=== PATIENT | male | born 1945 | race Caucasian/White ===

== ENCOUNTER 2017-07-05 09:35 | Emergency (ER) | END 2017-07-05 12:12 | disposition home or self-care (01) ==

== ENCOUNTER 2018-03-02 10:52 | Emergency (ER) | payer MEDICARE, OTHER ==
[~2018-03-02] VITALS: Wt 66.9 kg
[~2018-03-02 10:52] MED LIST: FIORICET PO
[2018-03-02 10:56] VITALS: BP 123/78; PULSE 78; RESP 16
[2018-03-02] MEDS ORDERED: BENZ-6 PO (13:40)
[2018-03-02] MEDS ORDERED: AZIT250T PO (13:40)
--- NOTE | 2018-03-02 13:57 | ERD ---
ER Documentation Chief Complaint Chief Complaint COUGH WITH PHLEGM X6 MONTHS, NO SOB, NO CP HPI Patient is a 72-year-old male with past medical history of CVA who presents the ER for concerns of cough times 6 months. Patient is brought in by his granddaughter. Patient reports clear sputum production. Patient denies any hemoptysis. Patient denies any shortness of breath. Patient states he occasionally has chest pain when coughing only. Patient denies any chest pain rest. Patient denies any radiating pain. Patient denies any leg swelling, history of DVT/PE, recent surgeries. Patient denies any weight loss or night sweats. ROS All systems reviewed and are negative except as per history of present illness. Medications Home Meds Active Scripts Azithromycin* (Zithromax*) 250 Mg Tablet, 250 MG PO .ZPACK DIRECTED, #6 TAB TAKE 500 MG (2 TABS) THE FIRST DAY THEN 250 MG (1 TAB) DAYS 2-5 Prov:MIRTHA GONZALEZ PA-C 03/02/18 Benzonatate* (Tessalon Perle*) 100 Mg Capsule, 100 MG PO Q8H PRN for COUGH, #20 CAP Prov:MIRTHA GONZALEZ PA-C 03/02/18 Acetamin/Butalbital/Caffeine* (Fioricet*) [id number] Tab, 1 TAB PO Q6H PRN for PAIN, #30 TAB Prov:DWAIN SWARTZ PA-C 07/05/17 Allergies Allergies: Coded Allergies: No Known Allergy (Unverified , 07/05/17) PMhx/Soc Hx Neurological Disorder: Yes (CVA) Hx Alcohol Use: No Hx Substance Use: No Hx Tobacco Use: No FmHx Family History: No diabetes Physical Exam Vitals Vital Signs Date Temp Pulse Resp B/P (MAP) Pulse Ox O2 O2 Flow FiO2 Time Delivery Rate 03/02/18 97.8 78 16 123/78 96 10:56 (93) Physical Exam GENERAL: Well-developed, well-nourished male. Appears in no acute distress. HEAD: Normocephalic, atraumatic. EYES: Pupils are equally reactive bilaterally. EOMs grossly intact. No conjunctival erythema. ENT: Moist mucous membranes. No uvula deviation. No kissing tonsils. NECK: Supple. No meningismus. Normal range of motion of the neck. LUNG: Clear to auscultation bilaterally. No rhonchi, wheezing, rales or coarse breath sounds. HEART: Regular rate and rhythm. No murmurs, rubs or gallops. EXTREMITIES: Equal pulses bilaterally. No peripheral clubbing, cyanosis or edema. No unilateral leg swelling. NEUROLOGIC: Alert and oriented. Moving all four extremities without any difficulty. Normal speech. Steady gait. SKIN: Normal color. Warm and dry. No rashes or lesions. Result Diagram: 03/02/18 1224 03/02/18 1224 Results 24 hrs Laboratory Tests Test 03/02/18 12:24 White Blood Count 5.3 10^3/ul Red Blood Count 5.26 10^6/ul Hemoglobin 16.9 g/dl Hematocrit 47.7 % Mean Corpuscular Volume 90.7 fl Mean Corpuscular Hemoglobin 32.1 pg Mean Corpuscular Hemoglobin Concent 35.4 g/dl Red Cell Distribution Width 12.9 % Platelet Count 216 10^3/UL Mean Platelet Volume 9.9 fl Immature Granulocytes % 0.600 % Neutrophils % 69.4 % Lymphocytes % 19.1 % Monocytes % 7.6 % Eosinophils % 2.7 % Basophils % 0.6 % Nucleated Red Blood Cells % 0.0 /100WBC Immature Granulocytes # 0.030 10^3/ul Neutrophils # 3.7 10^3/ul Lymphocytes # 1.0 10^3/ul Monocytes # 0.4 10^3/ul Eosinophils # 0.1 10^3/ul Basophils # 0.0 10^3/ul Nucleated Red Blood Cells # 0.0 10^3/ul Sodium Level 141 mmol/L Potassium Level 4.4 mmol/L Chloride Level 103 mmol/L Carbon Dioxide Level 25 mmol/L Anion Gap 13 Blood Urea Nitrogen 20 mg/dl Creatinine 0.97 mg/dl Est Glomerular Filtrat Rate mL/min mL/min Glucose Level 123 mg/dl Calcium Level 9.3 mg/dl Troponin I < 0.012 ng/ml B-Type Natriuretic Peptide 33 PG/ML Procedures/MDM ED COURSE: The patient was stable throughout ED course. I kept the patient and/or family informed of laboratory and diagnostic imaging results throughout the ED course. EKG: Read by Dr. Louis attending physician. EKG shows normal sinus rhythm at a rate of 66 bpm Left anterior fascicular block noted DIAGNOSTIC IMAGING: Read by radiologist. Patient: JIM BELL : 1945 Age: 72 Sex: M MR #: [id number] DOS: 03/02/18 1147 Ordering MD: MIRTHA GONZALEZ PA-C Location: [facility] Room/Bed: PROCEDURE: XR Chest. CLINICAL INDICATION: Cough TECHNIQUE: PA and lateral views of the chest were obtained COMPARISON: None FINDINGS: The heart and mediastinum are within normal limits. There is a small right lower lobe calcified granuloma. The lungs are otherwise clear. There is no pleural effusion or pneumothorax. The bones and soft tissues are unremarkable. RPTAT: AA IMPRESSION: No acute disease. Small right lower lobe calcified granuloma. .Spencer Pritchard MD, MD Date Time Electronically viewed and signed by .Spencer Pritchard MD, MD on 03/02/2018 1 3:25 .S/ CC: MIRTHA GONZALEZ PA-C [id number] PROCEDURES: None. MEDICAL DECISION MAKING: This is a 72-year-old male who presents ER for concerns of cough times 6 months. Patient denies any fevers. Patient was afebrile. Patient was not hypoxic. Patient denied recent travel. Cardiac exam was normal. Lung exam was normal. EKGs showed normal sinus rhythm with left anterior fascicular block. Patient was advised he will need to follow-up with studio coordinator for further management of these findings. Patient likely needs a stress test. CXR showed no acute processes. Blood work was obtained. CBC was unremarkable. CMP was unremarkable. Troponin was negative. BNP was within normal limits. At this time, the patient presentation is most consistent with a chronic cough. Patient was advised to follow-up with studio coordinator and/or oven worker for further management of his chronic cough. Referral information provided. Low suspicion for coronary syndrome, pneumothorax, pneumonia, TB, influenza, pertussis, GERD, allergic rhinitis. I will empirically treat patient with course of antibiotics to see if this clears the symptoms. Z-Julián provided. Patient was nontoxic, non-opening prior to discharge. PRESCRIPTIONS: Debbi Mcfarland DISCHARGE: At this time, patient is stable for discharge and outpatient management. I have instructed the patient to follow-up with his/her primary care physician in 1-2 days. If symptoms persist, patient may need to see a specialist for further examinations and testing. I have instructed the patient to promptly return to the ER at any time for any new or worsening symptoms including increased incre ased pain, fever, nausea, vomiting, numbness, shortness of breath, weakness, ongoing wheezing, retractions or LOC. The patient and/or family expressed understanding of and agreement with this plan. All questions were answered. Home care instructions were provided. Disclaimer: Inadvertent spelling and grammatical errors are likely due to EHR/dictation software use and do not reflect on the overall quality of patient care. Also, please note that the electronic time recorded on this note does not necessarily reflect the actual time of the patient encounter. Departure Diagnosis: Primary Impression: Cough Condition: Fair Patient Instructions: Cough, Chronic, Uncertain Cause, (Adult) Referrals: HEATHER LEVY MD,ABBIE MARIA,YVETTE VELASQUEZ,CHRISTINE JACOBSON,SAEID LUND,JARROD CARD,VIOLA WISE,QI BANG [facility] YOU HAVE RECEIVED A MEDICAL SCREENING EXAM AND THE RESULTS INDICATE THAT YOU DO NOT HAVE A CONDITION THAT REQUIRES URGENT TREATMENT IN THE EMERGENCY DEPARTMENT. FURTHER EVALUATION AND TREATMENT OF YOUR CONDITION CAN WAIT UNTIL YOU ARE SEEN IN YOUR DOCTORS OFFICE WITHIN THE NEXT 1-2 DAYS. IT IS YOUR RESPONSIBILITY TO MAKE AN APPOINTMENT FOR FOLOW-UP CARE. IF YOU HAVE A PRIMARY DOCTOR --you should call your primary doctor and schedule an appointment IF YOU DO NOT HAVE A PRIMARY DOCTOR YOU CAN CALL OUR PHYSICIAN REFERRAL HOTLINE AT IF YOU CAN NOT AFFORD TO SEE A PHYSICIAN YOU CAN CHOSE FROM THE FOLLOWING [facility] [address] [facility] [address] [facility] [address] [facility] [address] [facility] [facility] [address] [facility]. [facility]. [address] [facility]. [facility] YOU HAVE RECEIVED A MEDICAL SCREENING EXAM AND THE RESULTS INDICATE THAT YOU DO NOT HAVE A CONDITION THAT REQUIRES URGENT TREATMENT IN THE EMERGENCY DEPARTMENT. FURTHER EVALUATION AND TREATMENT OF YOUR CONDITION CAN WAIT UNTIL YOU ARE SEEN IN YOUR DOCTORS OFFICE WITHIN THE NEXT 1-2 DAYS. IT IS YOUR RESPONSIBILITY TO MAKE AN APPOINTMENT FOR FOLOW-UP CARE. IF YOU HAVE A PRIMARY DOCTOR --you should call your primary doctor and schedule and appointment IF YOU DO NOT HAVE A PRIMARY DOCTOR YOU CAN CALL OUR PHYSICIAN REFERRAL HOTLINE AT . IF YOU CAN NOT AFFORD TO SEE A PHYSICIAN YOU CAN CHOSE FROM THE FOLLOWING [facility] INSTITUTIONS: [facility] [address] [place] [address] [facility] [address] [place] [address] [facility] [address] [place] [address] Additional Instructions: Follow-up with your primary care physician for referral to a studio coordinator and/or oven worker for further management of your symptoms. MIRTHA GONZALEZ PA-C Mar 02, 2018 13:57
== END 2018-03-02 14:01 | disposition home or self-care (01) ==
LOC: FTE 10:52
DX: R05 Cough (principal); Z86.73 Personal history of transient ischemic attack (TIA), and cerebral infarction without residual deficits
CPT/HCPCS: 36415; 71046; 80048; 83880; 84484; 85025; 93005

== ENCOUNTER 2018-03-13 10:14 | Emergency (ER) | payer MEDICARE ==
[~2018-03-13] VITALS: Ht 167.6 cm; Wt 69.4 kg
[~2018-03-13 10:14] MED LIST changes: +AZIT250T PO; +BENZ-6 PO
[2018-03-13 10:21] VITALS: BP 146/75; RESP 20; Ht 167.6 cm; Wt 69.4 kg
[2018-03-13] MEDS ORDERED: ALBUTEROL 0.083% (NEB) 2.5 MG/3 ML AMP HHN STA (11:15)
--- NOTE | 2018-03-13 11:17 | ERD ---
ER Documentation Chief Complaint Chief Complaint Complains of a cough x 3 days HPI 72-year-old male, presents to the emergency department, complaining of persistent cough. The patient was seen here last week and started on azithromycin. The patient denies fever, no chills, but persist with nocturnal cough. He denies chest pain, no shortness of breath. ROS All systems reviewed and are negative except as per history of present illness. Medications Home Meds Active Scripts Inhaler, Assist Devices (Compact Space Chamber) 1 Each Spacer, EACH MC Q4H WHILE AWAKE PRN for COUGH, #1 Prov:YENNI HIGGINS MD 03/13/18 Guaifenesin-Codeine Phosphate* (Guaifenesin* AC Cough Syrup) 473 Ml Liquid, 5 ML PO Q4H PRN for COUGH, #60 ML Prov:YNENI HIGGINS MD 03/13/18 Albuterol Sulfate* (Proair HFA*) 8.5 Gm Hfa.aer.ad, 2 PUFF INH Q4H PRN for WHEEZING AND SOB, #1 INHALER Prov:YENNI HIGGINS MD 03/13/18 Azithromycin* (Zithromax*) 250 Mg Tablet, 250 MG PO .ZPACK DIRECTED, #6 TAB TAKE 500 MG (2 TABS) THE FIRST DAY THEN 250 MG (1 TAB) DAYS 2-5 Prov:MIRTHA GONZALEZ PA-C 03/02/18 Benzonatate* (Tessalon Perle*) 100 Mg Capsule, 100 MG PO Q8H PRN for COUGH, #20 CAP Prov:MIRTHA GONZALEZ PA-C 03/02/18 Acetamin/Butalbital/Caffeine* (Fioricet*) [id number] Tab, 1 TAB PO Q6H PRN for PAIN, #30 TAB Prov:DWAIN SWARTZ PA-C 07/05/17 Allergies Allergies: Coded Allergies: No Known Allergy (Unverified , 07/05/17) PMhx/Soc Hx Neurological Disorder: Yes (CVA) Hx Alcohol Use: No Hx Substance Use: No Hx Tobacco Use: No FmHx Family History: No diabetes, No coronary disease (She is known hours that) Physical Exam Vitals Vital Signs Date Temp Pulse Resp B/P (MAP) Pulse Ox O2 O2 Flow FiO2 Time Delivery Rate 03/13/18 78 18 98 21 11:44 03/13/18 98.3 86 20 146/75 98 10:21 (98) Physical Exam Const: No acute distress Head: Atraumatic Eyes: Normal Conjunctiva ENT: Normal External Ears, Nose and Mouth. Neck: Full range of motion. No meningismus. Resp: Clear to auscultation bilaterally Cardio: Regular rate and rhythm, no murmurs Abd: Soft, non tender, non distended. Normal bowel sounds Skin: No petechiae or rashes Back: No midline or flank tenderness Ext: No cyanosis, or edema Neur: Awake and alert Psych: Normal Mood and Affect Results 24 hrs Current Medications Medications Dose Sig/Marci Start Time Status Last (Trade) Ordered Route PRN Stop Time Admin Dose Reason Admin Albuterol 5 mg ONCE STAT 03/13/18 DC 03/13/18 (Proventil HHN 11:15 03/13/18 11:44 0.083% (Neb)) 11:36 Ipratropium 0.5 mg ONCE ONCE 03/13/18 DC 03/13/18 [place] [facility] 11:30 03/13/18 11:44 (Atrovent 11:36 0.02% (Neb)) DIAGNOSTIC IMAGING REPORT Patient: JIM BELL : 1945 Age: 72 Sex: M [id number] DOS: 03/13/18 1115 Ordering MD: YENNI HIGGINS MD Location: [facility] Room/Bed: PROCEDURE: XR Chest. CLINICAL INDICATION: Cough. TECHNIQUE: PA and Lateral views of the chest were obtained. COMPARISON: Chest x-ray March 02, 2018 12:52 p.m. FINDINGS: The soft tissues are normal. There are osteophytes in the thoracic spine. The heart is mildly enlarged. The cardiomediastinal silhouette and hilar structures are normal. The pulmonary vasculature is normal. There is a left-sided aorta. No acute infiltrate is identified. A stable 7.2 mm calcified granuloma is present in the periphery of the right lower lung field. The costophrenic angles are normal. IMPRESSION: 1. There is no evidence of active cardiopulmonary disease. 2. Stable 7.2 mm calcified granuloma in the periphery of the right lower lobe. RPTAT:AAJJ Physician Reyna Date Time Electronically viewed and signed by Brannon Arana Physician on 03/13/2018 11:47 JM/ CC: YENNI HIGGINS MD [id number] Procedures/MDM Vital signs stable, no respiratory distress. Differential diagnosis include but not limited to: Respiratory infection bacterial/viral/fungal. Croup, bronchiolitis, pneumonitis, allergies, GERD. Less likely foreign body aspiration, cardiac related. Physical examination and clinical presentation consistent most likely with postinfectious cough, the patient received nebulized treatment with improvement of the symptoms. Treatment options and clinical impression discussed with the patient who agrees with management. The patient is stable to be treated outpatient and will be di scharged home with a Rx for pro-air within a spacer and promethazine codeine syrup. Some side effects of prescribed medications (headache, rash, nausea, vomiting, diarrhea, interactions with other medications) were reviewed. The patient needs to follow up with the primary care provider in the next 48h. If symptoms persist, worsen or new symptoms develop, then patient should return to the ED immediately. Disclaimer: Inadvertent spelling and grammatical errors are likely due to EHR/dictation software use and do not reflect on the overall quality of patient care. Also, please note that the electronic time recorded on this note does not necessarily reflect the actual time of the patient encounter. Departure Diagnosis: Primary Impression: Cough Condition: Stable Additional Instructions: Muchas tatiana por [facility] para snyder servicio. Esperamos que en snyder visita a la beltran de emergencia snyder problema medico haya sido solucionado y que se sienta mucho mejor. Para estar seguros que snyder mejoria sigue en proceso, le pedimos el favor de hacer andres gallito de seguimiento medico con snyder doctor primario en los proximos 2-4 reyez. Lleve con usted estos documentos y las medicinas recetadas. Si ashu sintomas empeoran, NO SE ESPERE, por favor regrese a beltran de emergencia INMEDIATAMENTE. En sabine que usted no tenga un mdico de atencin primaria: Llame al mdico o clnica comunitaria de referencia que aparece abajo krish las horas de consultorio para hacer andres gallito para que le vean. CLINICAS: [facility] [phone] [facility] [phone] [facility] [phone] [facility] [phone] [address] [facility] [phone] [address] [facility]. [phone] YENNI GARCIA MD Mar 13, 2018 11:17
[2018-03-13] MEDS ORDERED: IPRATROPIUM (NEB) 0.5 MG/2.5 ML AMP HHN ONE (11:30)
[2018-03-13] MEDS ORDERED: ALBU8.5H8 INH (12:01)
[2018-03-13] MEDS ORDERED: GUAI473L22 PO (12:01)
[2018-03-13] MEDS ORDERED: INHA-3 MC (12:01)
[2018-03-13 12:22] VITALS: PULSE 95
== END 2018-03-13 12:24 | disposition home or self-care (01) ==
LOC: FTE 10:14
DX: R05 Cough (principal); Z86.73 Personal history of transient ischemic attack (TIA), and cerebral infarction without residual deficits
CPT/HCPCS: 71046; 94664